=== PATIENT | male | born 1970 | race African-American/Black ===

== ENCOUNTER 2017-11-18 10:50 | Emergency (ER) | payer SELFPAY ==
[2017-11-18 11:10] VITALS: BP 131/75
--- NOTE | 2017-11-18 12:07 | UC ---
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 WAS ADVISED BY EMPLOYERS TO COME HERE FOR EVAL. DENIES ANY SOB, CP OR LOC. HAS PAIN WITH MVMT BUT NOT WITH COUGHING OR DEEP INSPIRATION. - History of Current Complaint Chief Complaint: UCTrauma Stated Complaint: FLANK INJURY WC Time Seen by Provider: 11/18/17 11:05 Hx Obtained From: Patient Onset/Duration: Sudden Onset, Lasting Hours, Still Present Onset Of Pain: Immediate Severity Initially: Moderate Severity Currently: Mild Pain Intensity: 1 Pain Scale Used: 0-10 Numeric Mechanism Of Injury: Blunt Trauma Aggravating Factor(s): Movement Alleviating Factor(s): Rest Associated Signs And Symptoms: Negative: Loss Of Consciousness, Ecchymosis, Swelling - Allergies/Home Medications Allergies/Adverse Reactions: Allergies Allergy/AdvReac Type Severity Reaction Status Date / Time No Known Allergies Allergy Verified 11/18/17 11:00 Home Medications: Home Medications Gabapentin [Neurontin] 100 mg PO TID 11/18/17 [History Confirmed 11/18/17] PMH/Surg Hx/FS Hx/Imm Hx - Additional Past Medical History Additional PMH: DVT S/P TRAUMA 2016 Cardiovascular History: Hypertension - Surgical History Surgical History: Yes Surgery Procedure, Year, and Place: broken right elbow repair,. left meniscectomy - Family History Known Family History: Negative: Hypertension - Social History Alcohol Use: Occasionally Substance Use Type: None Smoking Status (MU): Never Smoked Tobacco - Immunization History Most Recent Influenza Vaccination: Never Most Recent Tetanus Shot: 2002 Review of Systems Constitutional: Negative Skin: Negative Respiratory: Negative Cardiovascular: Negative Gastrointestinal: Negative Musculoskeletal: Other: - LEFT RIB CAGE PAIN All Other Systems Reviewed And Are Negative: Yes Physical Exam Triage Information Reviewed: Yes Appearance: Well-Appearing, No Pain Distress, Well-Nourished Vital Signs: Initial Vital Signs Temp 98 F 11/18/17 11:02 Pulse 59 11/18/17 11:02 Resp 16 11/18/17 11:02 BP 131/75 11/18/17 11:02 Pulse Ox 98 11/18/17 11:02 Vital Signs Reviewed: Yes Eyes: Positive: Conjunctiva Clear ENT: Positive: Hearing grossly normal Neck: Positive: Supple Respiratory Exam: Normal Cardiovascular Exam: Normal Abdomen Description: Positive: Soft Musculoskeletal: Positive: ROM Intact, No Edema, Other: - TTP LEFT LATERAL RIB CAGE Neurological: Positive: Alert Psychological: Positive: Age Appropriate Behavior Skin: Negative: rashes Minor Trauma Course/Dx - Differential Dx/Diagnosis Provider Diagnoses: LEFT RIB CAGE CONTUSION Discharge - Discharge Plan Condition: Stable Disposition: HOME Patient Education Materials: Rib Contusion (ED) Referrals: Chance Velez MD [Primary Care Provider] - If Needed Additional Instructions: CONTUSION: Your injury has resulted in a contusion -- a crushing of the deep tissues. No injury to important structures was detected during the physician's exam. Contusions vary in the amount of pain they cause, and in the length of time required for healing. Typically, the area will become bruised, and will remain painful to touch for two or three weeks. However, most patients are back to working and playing within a few days. After the initial period of rest and cold-packs, your symptoms (together with the doctor's recommendations) will determine how rapidly you can get back to full activity. Usually this means "do what feels okay, but don't do things that hurt." If re-examination was recommended, it's important to follow up as instructed. Call the doctor or return any time if pain increases, if swelling becomes severe, if you develop numbness or weakness in an injured extremity, or if any other alarming symptoms occur. GO TO THE ER WITHOUT FAIL IF YOU DEVELOP WORSENING PAIN, SHORTNESS OF BREATH, CHEST PAIN, FEVER OR ANY OTHER CONCERNING SYMPTOMS.
== END 2017-11-18 12:20 | disposition home or self-care (01) ==
LOC: UCEAST 10:50
DX: S20.212A Contusion of left front wall of thorax, initial encounter (principal); W50.0XXA Accidental hit or strike by another person, initial encounter; Y93.89 Activity, other specified; Y92.159 Unspecified place in reform school as the place of occurrence of the external cause; Y99.0 Civilian activity done for income or pay; I10 Essential (primary) hypertension; Z86.718 Personal history of other venous thrombosis and embolism
CPT/HCPCS: 99201; G0463

== ENCOUNTER 2018-08-26 13:54 | Observation (INO) | payer OTHER ==
--- NOTE | 2018-08-26 14:55 | ED ---
Lower Extremity - HPI Summary HPI Summary: Pt. is a 48 y.o male who presents to the ER for pain to his left groin and upper thigh x several days. Pt. does not recall any specific injury or fall. Pt. has a hx of DVT in left leg in 2012. Pt. currently not anticoagulated. Take a baby asa daily. He otherwise denies past medical hx. Notes a mild cough but denies CP or SOB. Negative hypercoag. panel was negative. Pt. notes intermittent edema to left NO current modifying factors. - History of Current Complaint Chief Complaint: EDExtremityLower Stated Complaint: LT LEG PAIN Time Seen by Provider: 08/26/18 14:04 Hx Obtained From: Patient Pain Intensity: 7 - Allergies/Home Medications Allergies/Adverse Reactions: Allergies Allergy/AdvReac Type Severity Reaction Status Date / Time hydrocodone Allergy Itching Verified 08/26/18 13:59 PMH/Surg Hx/FS Hx/Imm Hx Previously Healthy: Yes Endocrine/Hematology History: Denies: Hx Diabetes, Hx Thyroid Disease Cardiovascular History: Reports: Hx Hypertension Denies: Hx Congestive Heart Failure, Other Cardiovascular Problems/Disorders Respiratory History: Reports: Hx Sleep Apnea - current CPAP user Denies: Hx Asthma, Hx Chronic Obstructive Pulmonary Disease (COPD), Other Respiratory Problems/Disorders GI History: Denies: Hx Ulcer History: Denies: Hx Renal Disease Musculoskeletal History: Reports: Hx Arthritis, Other Musculoskeletal History - L Knee surg 2008, R elbow surg 2011 - Surgical History Surgery Procedure, Year, and Place: broken right elbow repair,. left meniscectomy - Immunization History Date of Tetanus Vaccine: Unsure Date of Influenza Vaccine: unsure Infectious Disease History: No Infectious Disease History: Denies: Hx Hepatitis, Hx Human Immunodeficiency Virus (HIV), Traveled Outside the [place] in Last 30 Days - Family History Known Family History: Negative: Hypertension - Social History Occupation: Employed Full-time Lives: With Family Alcohol Use: Occasionally Substance Use Type: Reports: None Smoking Status (MU): Never Smoked Tobacco Review of Systems Constitutional: Negative Cardiovascular: Negative Negative: Chest Pain Positive: Cough. Negative: Shortness Of Breath Positive: Other - Pain to left upper leg Negative: Weakness, Paresthesia, Numbness All Other Systems Reviewed And Are Negative: Yes Physical Exam Triage Information Reviewed: Yes Vital Signs On Initial Exam: Initial Vitals Temp Pulse Resp BP Pulse Ox 99.1 F 54 17 131/94 99 12/08/18 13:55 08/26/18 13:55 08/26/18 13:55 08/26/18 13:55 08/26/18 13:55 Vital Signs Reviewed: Yes Appearance: Positive: Well-Appearing - Pt. lying in bed in NAD. present. Skin: Positive: Warm, Dry Head/Face: Positive: Normal Head/Face Inspection Eyes: Positive: Normal, EOMI Neck: Positive: Supple Musculoskeletal: Positive: Other - 5/5 strength in bilateral LEs. No erythema or edema noted. Good palpable pedal pulses. No reproducible pain to left leg. Mild pain with rotation of left hip. No back tenderness. Neurological: Positive: Normal, CN Intact II-III Psychiatric: Positive: Affect/Mood Appropriate Diagnostics - Vital Signs Vital Signs Temp Pulse Resp BP Pulse Ox 08/26/18 13:55 99.1 F 54 17 131/94 99 - Laboratory Lab Statement: Any lab studies that have been ordered have been reviewed, and results considered in the medical decision making process. Lower Extremity Course/Dx - Course Course Of Treatment: Patient presenting with upper left leg pain and left groin pain. His exam is unremarkable. Given history of DVT Will obtain venous duplex as well as hip x-ray. US per radiology: IMPRESSION: Positive left lower extremity DVT extending from the common femoral vein to the. infrapopliteal veins. If the patient describes chronic DVTs as well as chronic left leg. swelling and left-sided varicose veins vascular imaging of the abdomen and pelvis is. advised to evaluate for abdominal pelvic venous compression syndrome (i.e. May Thurner. Syndrome). Findings and recommendation were discussed over the telephone with CAROLYN Vieira at. approximately 1640 hours on August 26, 2018. Results discussed with pt. and . He does not ongoing swelling in left leg. Given Dr. Lopez's concern will obtain CT abd/pelvis for further evaluation of possible abd. pelvic venous compression syndrome. Pt. also notes that when he had his last dvt he also was found to have numerous PEs as well. Pt. concerned for PEs again at this time. He denies CP or SOB. He does not mild cough. Will obtain CTA of chest as well given clot location. Pt. will be signed out to Donita Archer PA-C for CT results and appropriate disposition. - Diagnoses Differential Diagnosis/HQI/PQRI: Positive: Bursitis, Contusion, DVT, Infection, Sprain, Strain Provider Diagnoses: Dvt femoral (deep venous thrombosis) Discharge - Sign-Out/Discharge Documenting (check all that apply): Patient Departure Signing out patient TO: Donita Archer - Discharge Plan Condition: Stable Disposition: HOME Referrals: Chance Velez MD [Primary Care Provider] - - Billing Disposition and Condition Condition: STABLE Disposition: Home
[2018-08-26 17:18] LABS: ABS Basophils 0.1 10^3/ul (0-0.2); ABS Eosinophils 0.1 10^3/ul (0-0.6); ABS Lymphocytes 1.4 10^3/ul (1.0-4.8); ABS Monocytes 0.9 10^3/ul (0-0.8); ABS Neutrophils 7.1 10^3/ul (1.5-7.7); ABS Nucleated RBC 0 10^3/ul; Eosinophil % 0.8 %; Hematocrit 41 % (42-52); Hemoglobin 13.8 g/dl (14.0-18.0); Lymphocyte % 14.6 %; Mean Corpuscular HGB Conc 34 g/dl (31-36); Mean Corpuscular Hemoglobin 27 pg (27-31); Mean Corpuscular Volume 79 fL (80-94); Mean Platelet Volume 7.5 fL (7.4-10.4); Nucleated Red Blood Cells % 0; Platelet Count 207 10^3/ul (150-450); Red Blood Count 5.21 10^6/ul (4.00-5.40); Red Cell Distribution Width 13 % (10.5-15); White Blood Count 9.5 10^3/ul (3.5-10.8)
[2018-08-26 17:26] LABS: INR 0.98 (0.77-1.02)
[2018-08-26 17:39] LABS: EGFR Non-African American 54.6 (>60)
[2018-08-26] MEDS ORDERED: Iodixanol* (CONTRAST) 320 MG/ML 100 ML SDV IV ONE (17:42)
--- NOTE | 2018-08-26 19:33 | ED ---
Progress - Progress Note Progress Note: Patient is signed out from Prieto Ravi PA-C. He presented with left lower extremity pain and swelling that started Tuesday. He has a history of DVT here and so came in to get checked out. Upon investigation he is found to have a positive DVT in the common femoral vein in his left lower extremity. Conversation between CAROLYN Ravi and Dr. Lopez led to assessment of chest, abdomen and pelvis for possible lesion causing recurrent swelling, pain and DVT in left lower extremity. Report indicates patient has multiple bilateral acute pulmonary emboli. After discussing results with patient he does admit he's felt more fatigued this past week and has had a cough for about 2 months but denies maria isabel fever, chills, chest pain, shortness of breath, bloody cough, back pain. 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 He denies any recent trauma, travel, dehydration, smoking, history of cancer and he is not obese. His DVT in the past had also lead to pulmonary embolism leading him to be on Coumadin for 6 months. He reports he was seen by a blood specialist who ruled out anticoagulopathy issues (labs in chart for details). He is not sure what caused his symptoms this time other than possibly sitting at work at night. Labs and vital signs without acute findings. Discussed case with Dr. Alberts for admission. Patient stable at time of transition of care. Course/Dx - Course Course Of Treatment: Patient presenting with upper left leg pain and left groin pain. His exam is unremarkable. Given history of DVT Will obtain venous duplex as well as hip x-ray. US per radiology: IMPRESSION: Positive left lower extremity DVT extending from the common femoral vein to the. infrapopliteal veins. If the patient describes chronic DVTs as well as chronic left leg. swelling and left-sided varicose veins vascular imaging of the abdomen and pelvis is. advised to evaluate for abdominal pelvic venous compression syndrome (i.e. May Thurner. Syndrome). Findings and recommendation were discussed over the telephone with CAROLYN Vieira at. approximately 1640 hours on August 26, 2018. Results discussed with pt. and . He does not ongoing swelling in left leg. Given Dr. Lopez's concern will obtain CT abd/pelvis for further evaluation of possible abd. pelvic venous compression syndrome. Pt. also notes that when he had his last dvt he also was found to have numerous PEs as well. Pt. concerned for PEs again at this time. He denies CP or SOB. He does not mild cough. Will obtain CTA of chest as well given clot location. Pt. will be signed out to Donita Archer PA-C for CT results and appropriate disposition. - Diagnoses Provider Diagnoses: Dvt femoral (deep venous thrombosis) Discharge - Sign-Out/Discharge Documenting (check all that apply): Receiving Sign-Out, Post-Discharge Follow Up Receiving patient FROM: Prieto Ravi - Discharge Plan Condition: Stable Disposition: HOME - Billing Disposition and Condition Condition: STABLE Disposition: Home
[2018-08-26] MEDS ORDERED: Acetaminophen TAB* 325 MG PO ONE (19:42)
[2018-08-26] MEDS ORDERED: Acetaminophen TAB* 325 MG PO PRN (20:59)
[2018-08-26] MEDS ORDERED: Ondansetron INJ* 2 MG/ML VIAL IV PRN (20:59)
[2018-08-26] MEDS ORDERED: NS 0.9% 1000 ML* 1,000 ML IV SCH (21:00)
[2018-08-26] MEDS ORDERED: Gabapentin CAP(*) 100 MG ONE (23:23)
[2018-08-26] MEDS: traMADol TAB* 50 MG PO PRN (23:26)
[2018-08-26] MEDS: Rivaroxaban TAB(*) 15 MG PO SCH (23:29)
--- NOTE | 2018-08-27 00:54 | HP ---
CC: Dr. Chance Velez * HISTORY AND PHYSICAL: DATE OF ADMISSION: 08/26/18 PROVIDER: Danny Wasserman NP ATTENDING PHYSICIAN: Dr. Noel Alberts * (dictated by Danny Wasserman NP). PRIMARY CARE PROVIDER: Dr. Chance Velez. CHIEF COMPLAINT: Leg pain. HISTORY OF PRESENT ILLNESS: This is a 48-year-old male who presents today with concern for left upper inner leg pain that started over a week and a half ago. 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 He does have more leg pain there because of the chair they have available for staff. He states that he started having pain in the left leg and going into the hip, which he attributed to the chair as they are low and uncomfortable for him. He states that he is normally pretty active at work. He usually sits for only 15 minutes in as he is usually up and rounding on residents. The pain persisted through the weekend and started to became more worsen on 08/21/18, where he noticed increased pain. He had been wearing his compression stocking to the left extremity, but noted there was still increased swelling. This continued to escalate until today when he decides to come in for further evaluation. He does have a history of left lower extremity DVT with bilateral PEs in 2012 and completed his course of Lovenox and warfarin. He states that he did follow up with loss control manager through [facility] who signed off on his consult after 2013. He did have a hypercoagulable workup all of which was negative. He does wear his left lower extremity compression stocking at work. He denies any known family history or other risk factors for blood clots and states that he is usually pretty active with his longest time of sitting being perhaps 60 to 90 minutes at work overnights. He says that he usually try to get up and exercise regularly. He denies any long trips or travel and any trauma to the extremity. He also denies any chest pain, trouble breathing, hemoptysis, cough. He denies any fever or chills, abdominal pain, nausea, vomiting, diarrhea, or other concerns. PAST MEDICAL HISTORY: Includes history of left lower extremity DVT and bilateral PEs in 2013, hypertension, obstructive sleep apnea, left knee arthroscopy, and right elbow surgery. He also has fibromyalgia and history of asthma not requiring inhaler. MEDICATIONS: Home medications include: 1. Aspirin 81 mg daily. 2. Verapamil SR 180 mg daily. 3. Gabapentin 100 mg t.i.d. ALLERGIES: Include HYDROCODONE and OXYCODONE, which cause itching. FAMILY HISTORY: He reports mother, who of gallbladder cancer. She also had a history of PE. His father is alive with a history of HIV, hypertension, and diabetes. SOCIAL HISTORY: He denies tobacco use. He reports occasional alcohol use. He denies any illicit drug use. He works at the [employer]. He is . His , Pascale Irene, is his surrogate decision maker in the event of emergency. REVIEW OF SYSTEMS: A 14-point review of systems was completed, all pertinent positives and negatives are as per HPI. All those not mentioned are negative. PHYSICAL EXAMINATION GENERAL: This is a very pleasant, interactive, alert, 48-year-old male, who is lying in the ED stretcher, in no acute distress. VITAL SIGNS: Temperature 98.3, pulse rate 65, respiratory rate 13, blood pressure 129/77, and O2 saturation is 97% on room air. HEENT: Head is atraumatic, normocephalic. Face is symmetrical. Pupils are equal, round, and reactive to light. Extraocular movements are intact. Oral mucosa is moist. NECK: Supple. No JVD noted. No lymphadenopathy appreciated. LUNGS: Clear to auscultation. CARDIAC: Normal S1, S2. Heart sounds with regular rate and rhythm. No murmurs appreciated. No rubs or gallops. Distal pulses are symmetric and equal. There is no lower extremity edema. ABDOMEN: Soft, nontender, nondistended. Bowel sounds are normoactive. MUSCULOSKELETAL: Patient has full range of motion and good strength in bilateral lower extremities. No clubbing or cyanosis noted. No erythema noted. No tenderness with palpation. No reproducible pain to the left leg. NEUROLOGIC: No focal deficits. Speech is clear. Cranial nerves II through XII grossly intact. PSYCH: Affect is appropriate. SKIN: Reveals grossly intact. LABORATORY DATA AND DIAGNOSTIC STUDIES: CBC: WBC 9.5, hemoglobin 13.8, hematocrit 41. INR 0.98. CMP: Sodium 137, potassium 4.1, chloride 103, carbon dioxide 28, BUN 13, creatinine 1.40, glucose 102, calcium 9.5, total bilirubin 1.0, AST 16, ALT 16, alk phos 77, albumin 4.2. CTA of the chest, abdomen and pelvis showed essential filling defect in the and segmental and subsegmental branches of the right lower lobe pulmonary artery, within the right middle lobe pulmonary artery and within the right upper lobe pulmonary artery in any subsegmental branch of the left upper lobe pulmonary artery and subsegmental branches of the left lower lobe pulmonary artery consistent with bilateral acute pulmonary embolism. There is a central filling defect in the left common femoral vein consistent with acute DVT. There is subcutaneous fat stranding of her cellulitis in the left anterior thigh surrounding the femoral vessels. Venous Doppler of the left lower extremity shows positive left lower extremity DVT extending from the common femoral vein to the infrapopliteal veins. If the patient describes chronic DVTs as well as chronic left leg swelling and left-sided varicose veins , vascular imaging of the abdomen and pelvis was advised to evaluate for abdominopelvic venous compression syndrome. Hip and pelvis x-ray normal with no acute pathology. ASSESSMENT AND PLAN: This is a 48-year-old male with history significant for hypertension, previous deep venous thrombosis and bilateral pulmonary emboli in 2013 as well as fibromyalgia, asthma, and obstructive sleep apnea. He presents today with concern for left lower extremity pain and was found to have bilateral pulmonary emboli as well as deep venous thrombosis of the left lower extremity, which is recurrent from 2013. He will be admitted under observation status to the medicine floor. Plan is as follows: 1. Bilateral pulmonary emboli and left lower extremity deep venous thrombosis. This gentleman was previously treated with Lovenox and warfarin back in 2012 and has since completed his anticoagulation and has been maintained on aspirin. Unfortunately, he has had recurrence of his deep venous thromboses and pulmonary emboli with unknown etiology. He has had a negative hypercoagulable workup previously; however, given that he has these recurrent thrombi, he will likely need lifelong anticoagulation or least an extended course. This was discussed with Dr. Alberts and it was determined that he would best benefit from Xarelto as he could maintain in the outpatient setting. He does report compliance with medications and taking as prescribed. We will start Xarelto, monitor him overnight. If he remains stable, he could be discharged home with close followup with Abdulkadir. We will monitor him on telemetry overnight. 2. History of hypertension. Currently well controlled. Continue home verapamil. 3. Sleep apnea. He is ordered CPAP. 4. History of asthma, non-exacerbation, monitor only. 5. Fibromyalgia. Continue gabapentin. 6. FEN. The patient is ordered a heart healthy diet. 7. DVT prophylaxis. The patient will be on Xarelto. 8. Code status. He is a full code. TIME SPENT: Time spent on this admission was approximately 60 minutes with more than half the time was spent [id number] with the patient obtaining history and physical, performing physical examination, reviewing the plan of care. Plan of care was also reviewed with my attending, Dr. Alberts, who is in agreement. DANNY WASSERMAN, VOLTMETER OPERATOR [id number]/CPS #: [id number] AMANDA
[2018-08-27] MEDS: Morphine VIAL* 4 MG/ML VIAL (1 ml vial) IV PRN ×2 (02:06→06:28)
[2018-08-27 06:48] LABS: ABS Basophils 0.1 10^3/ul (0-0.2); ABS Eosinophils 0.2 10^3/ul (0-0.6); ABS Lymphocytes 1.1 10^3/ul (1.0-4.8); ABS Neutrophils 6.6 10^3/ul (1.5-7.7); ABS Nucleated RBC 0 10^3/ul; Eosinophil % 1.7 %; Hematocrit 38 % (42-52); Hemoglobin 12.7 g/dl (14.0-18.0); Lymphocyte % 12.6 %; Mean Corpuscular HGB Conc 33 g/dl (31-36); Mean Corpuscular Hemoglobin 26 pg (27-31); Mean Corpuscular Volume 79 fL (80-94); Mean Platelet Volume 7.6 fL (7.4-10.4); Nucleated Red Blood Cells % 0; Platelet Count 204 10^3/ul (150-450); Red Blood Count 4.84 10^6/ul (4.00-5.40); Red Cell Distribution Width 13 % (10.5-15)
[2018-08-27 07:06] LABS: EGFR Non-African American 55.5 (>60)
[2018-08-27] MEDS: traMADol TAB* 50 MG PO PRN ×2 (08:21→14:54)
[2018-08-27] MEDS: Gabapentin CAP(*) 100 MG PO SCH ×3 (08:22→14:54)
[2018-08-27] MEDS: Rivaroxaban TAB(*) 15 MG PO SCH (08:22)
[2018-08-27] MEDS ORDERED: Verapamil SR CAP* 180 MG PO SCH (09:00)
[2018-08-27] MEDS ORDERED: Aspirin EC TAB* 81 MG TAB.EC PO SCH (09:00)
[2018-08-27 15:07] VITALS: BP 118/69
--- NOTE | 2018-08-28 08:32 | DS ---
CC: Dr. Chance Velez.* DISCHARGE SUMMARY: DATE OF ADMISSION: 08/26/18 DATE OF DISCHARGE: 08/27/18 FINAL DISCHARGE DIAGNOSES: 1. Bilateral pulmonary embolism. 2. Left lower extremity deep vein thrombosis. HOSPITAL COURSE: The patient was admitted on 08/26/18 for left lower extremity pain, started in the left upper thigh, progressively getting worse over 1-1/2 weeks, getting worse. Came into the emergency and he was found to have positive DVT in the left lower extremity and the left common femoral vein and also on CT angiogram of the chest shows bilateral segmental and subsegmental pulmonary embolism. He does have a history of prior DVT and was treated in 2012 , all deemed to be work related. The patient was admitted overnight, started on oral Xarelto for observation. I saw him this morning. He was in a very good condition, asymptomatic, chest pain free. Vital signs unremarkable with saturation 100% on room air. Hence, I deemed the patient stable for discharge for outpatient therapy with Xarelto 15 mg b.i.d. for another 20 days and once he completes the 20 days, he is to transition to Xarelto mg daily. I did advise the patient to remain out of work for 2 weeks, follow up with his primary care provider in 1 week, take all medications as prescribed. For further evaluation and assessment, please refer to the admissions done earlier. [id number]/CPS #: [id number]
== END 2018-08-27 15:55 | disposition home or self-care (01) ==
LOC: ED 13:54 → MED 20:59
PROVIDERS: ADMIT Internal Medicine; ATTEND Internal Medicine
DX: I26.99 Other pulmonary embolism without acute cor pulmonale (principal); I82.402 Acute embolism and thrombosis of unspecified deep veins of left lower extremity; R22.42 Localized swelling, mass and lump, left lower limb; I10 Essential (primary) hypertension
CPT/HCPCS: 36415; 71275; 74177; 80048; 80053; 85025; 85610; 85730; 94660; 96374; 96375; 96376; 99282; A9270-GY; G0378; J2270; Q9967

== ENCOUNTER 2018-09-15 11:27 | Emergency (ER) | payer OTHER ==
--- NOTE | 2018-09-15 11:54 | ED ---
Lower Extremity - HPI Summary HPI Summary: The patient is a 48 y/o M presenting to [facility] with a chief complaint of increased swelling in the left leg over the past few days. He has hx of DVT in the left leg and PE in his lungs, but he has noticed that there is more swelling in the knee and calf than usual. These blood clots were diagnosed three weeks ago, and he has been on blood thinners (Xarelto) since. His pain is currently rated 6/10 in severity. He denies CP and SOB, as well as no symptoms associated with the clots in his lungs. He is able to ambulate. - History of Current Complaint Chief Complaint: EDExtremityLower Stated Complaint: POSS EDEMA IN LEFT LEG Time Seen by Provider: 09/15/18 11:44 Hx Obtained From: Patient Mechanism Of Injury: Other - DVT Onset of Pain: Days Onset/Duration: Still Present Severity Initially: Moderate Severity Currently: Moderate Pain Intensity: 6 Pain Scale Used: 0-10 Numeric Timing: Constant, Lasting Days Location: Is Discrete @ - left leg Character Of Pain: Dull Associated Signs And Symptoms: Positive: Swelling, Other - NEGATIVE: CP, SOB Aggravating Factor(s): Nothing Alleviating Factor(s): Nothing Able to Bear Weight: Yes - Allergies/Home Medications Allergies/Adverse Reactions: Allergies Allergy/AdvReac Type Severity Reaction Status Date / Time hydrocodone Allergy Itching Verified 09/15/18 11:38 PMH/Surg Hx/FS Hx/Imm Hx Endocrine/Hematology History: Denies: Hx Diabetes, Hx Thyroid Disease Cardiovascular History: Reports: Hx Hypertension Denies: Hx Congestive Heart Failure, Other Cardiovascular Problems/Disorders Respiratory History: Reports: Hx Sleep Apnea - current CPAP user Denies: Hx Asthma, Hx Chronic Obstructive Pulmonary Disease (COPD), Other Respiratory Problems/Disorders GI History: Denies: Hx Ulcer History: Denies: Hx Renal Disease Musculoskeletal History: Reports: Hx Arthritis, Other Musculoskeletal History - L Knee surg 2008, R elbow surg 2011 Sensory History: Denies: Hx Contacts or Glasses, Hx Hearing Aid Opthamlomology History: Denies: Hx Contacts or Glasses - Surgical History Surgery Procedure, Year, and Place: broken right elbow repair,. left meniscectomy - Immunization History Date of Tetanus Vaccine: Unsure Date of Influenza Vaccine: unsure Infectious Disease History: No Infectious Disease History: Denies: Hx Hepatitis, Hx Human Immunodeficiency Virus (HIV), Traveled Outside the [place] in Last 30 Days - Family History Known Family History: Negative: Hypertension, Diabetes - Social History Alcohol Use: Rare Hx Substance Use: No Substance Use Type: Reports: None Smoking Status (MU): Former Smoker Review of Systems Negative: Chest Pain Negative: Shortness Of Breath Positive: Edema - throughout the left leg especially near the knee and calf All Other Systems Reviewed And Are Negative: Yes Physical Exam - Summary Physical Exam Summary: Appearance: The patient is well-nourished in no acute distress and in no acute pain. Skin: The skin is warm and dry and skin color reflects adequate perfusion. HEENT: The head is normocephalic and atraumatic. The pupils are equal and reactive. The conjunctivae are clear and without drainage. Nares are patent and without drainage. Mouth reveals moist mucous membranes and the throat is without erythema and exudate. The external ears are intact. The ear canals are patent and without drainage. The tympanic membranes are intact. Neck: The neck is supple with full range of motion and non-tender. There are no carotid bruits. There is no neck vein distension. Respiratory: Chest is non-tender. Lungs are clear to auscultation and breath sounds are symmetrical and equal. Cardiovascular: Heart is regular rate and rhythm. There is no murmur or rub auscultated. There is mild pitting edema in left lower extremity and pulses are symmetrical and equal. Abdomen: The abdomen is soft and non-tender. There are normal bowel sounds heard in all four quadrants and there is no organomegaly palpated. Musculoskeletal: There is no back tenderness noted. Extremities are non-tender with full range of motion. There is good capillary refill. There is mild pitting edema in left lower extremity and tenderness in the distal left common femoral canal elicited. Neurological: Patient is alert and oriented to person, place and time. The patient has symmetrical motor strength in all four extremities. Cranial nerves are grossly intact. Deep tendon reflexes are symmetrical and equal in all four extremities. Psychiatric: The patient has an appropriate affect and does not exhibit any anxiety or depression. Triage Information Reviewed: Yes Vital Signs On Initial Exam: Initial Vitals Temp Pulse Resp BP Pulse Ox 98.2 F 57 20 125/80 98 09/15/18 11:35 09/15/18 11:35 09/15/18 11:35 09/15/18 11:35 18 11:35 Vital Signs Reviewed: Yes Diagnostics - Vital Signs Vital Signs Temp Pulse Resp BP Pulse Ox 09/15/18 11:35 98.2 F 57 20 125/80 98 - Laboratory Lab Statement: Any lab studies that have been ordered have been reviewed, and results considered in the medical decision making process. Re-Evaluation - Re-Evaluation First Eval Re-Evaluation Time: 12:19 Change: Unchanged Comment: I spoke with the patient concerning discharge home. Lower Extremity Course/Dx - Course Course Of Treatment: Mr. Irene was diagnosed with a left leg DVT and asymptomatic PEs a few weeks ago. He was started on Zaroxolyn at that time. He has been off work until today when he returned to work. Today he noticed swelling increased in the left leg and was otherwise asymptomatic. He specifically denies any shortness of breath. He called his doctor and was recommended to come to the emergency department. I reviewed the situation with the hospitalist who agreed that this was likely because of dependency and a normal reaction and that no further testing was indicated. On exam he had only mild swelling and no sign of infection. He was nontoxic in appearance and his vital signs are stable. - Diagnoses Provider Diagnoses: DVT (deep venous thrombosis) - Physician Notifications Discussed Care Of Patient With: Chaim Fitch Time Discussed With Above Provider: 11:56 Instructed by Provider To: Other - I spoke with Dr. Fitch who recommended that the patient see his PCP. Discharge - Sign-Out/Discharge Documenting (check all that apply): Patient Departure - Patient will be discharged home. - Discharge Plan Condition: Stable Disposition: HOME Patient Education Materials: Deep Vein Thrombosis (ED) Referrals: Chance Velez MD [Primary Care Provider] - 3 Days Additional Instructions: Follow up with your primary care provider in 3 days. Return to the emergency department for any new or worsening symptoms. - Billing Disposition and Condition Condition: STABLE Disposition: Home - Attestation Statements Document Initiated by Scribe: Yes Documenting Scribe: Claudia Caceres Provider For Whom Vito is Documenting (Include Credential): Dr. Bishnu Cantrell MD Scribe Attestation: Claudia Paez scribed for Dr. Bishnu Cantrell MD on 09/15/18 at 1805. Scribe Documentation Reviewed: Yes Provider Attestation: The documentation as recorded by the scribe, Claudia Caceres accurately reflects the service I personally performed and the decisions made by me, Dr. Bishnu Cantrell MD Status of Vito Document: Viewed
[2018-09-15 13:05] VITALS: BP 0/0
== END 2018-09-15 13:04 | disposition home or self-care (01) ==
LOC: ED 11:27
DX: I82.4Z2 Acute embolism and thrombosis of unspecified deep veins of left distal lower extremity (principal); R60.0 Localized edema; Z87.891 Personal history of nicotine dependence
CPT/HCPCS: 99282